=== PATIENT | male | born 1995 | race Caucasian/White ===

== ENCOUNTER 2019-11-07 07:29 | Outpatient (CLI) | payer BC ==
--- NOTE | 2019-11-07 08:02 | RAD ---
EXAM: XR Foot Lt 3 View STANDARD PROVIDED CLINICAL HISTORY: History of injury COMPARISON: 10/16/2019 FINDINGS: Ununited nondisplaced fracture involving the far lateral base of the fifth metatarsal. Alignment appe ars anatomic. Joint spaces appear preserved. No lytic or blastic bony lesions are seen. IMPRESSION: Nondisplaced ununited base of fifth metatarsal fracture.
== END 2019-11-07 07:30 | disposition home or self-care (01) ==
LOC: SCSRAD 07:29
PROVIDERS: ATTEND Family Medicine
DX: S92.355K Nondisplaced fracture of fifth metatarsal bone, left foot, subsequent encounter for fracture with nonunion (principal)
CPT/HCPCS: 36415; 80053; 80061; 80074; 80306; 81001; 85007; 85027; 86694; 86695; 86696; 86780; 87389; 87491; 87591

== ENCOUNTER 2020-01-30 10:22 | Outpatient (CLI) | payer OTHER ==
--- NOTE | 2020-01-30 10:51 | RAD ---
XR Hand Rt 3 View STANDARD History: Injury of right hand subsequent encounter Comparison: Radiograph 12/03/2019 Findings: Healing fracture of the fourth metacarpal fracture. Old third metacarpal fracture. 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 Impression: 1. Healing fourth metacarpal fracture with periosteal new bone formation along the fracture. 2. Old third metacarpal fracture. 3. Relatively high-grade negative ulnar variance with advanced for age distal radioulnar joint degene rative disease.
== END 2020-01-30 10:23 | disposition home or self-care (01) ==
LOC: SJX 10:22 → SCSRAD 10:23
PROVIDERS: ATTEND Family Medicine
DX: S69.91XD Unspecified injury of right wrist, hand and finger(s), subsequent encounter (principal); S62.304D Unspecified fracture of fourth metacarpal bone, right hand, subsequent encounter for fracture with routine healing

== ENCOUNTER 2022-05-19 11:48 | Outpatient (CLI) | payer BC | END 2022-05-19 11:49 | disposition home or self-care (01) | LOC: ULT 11:48 | PROVIDERS: ATTEND Nurse Anesthetist, Certified Registered | DX: R94.5 Abnormal results of liver function studies (principal); R16.0 Hepatomegaly, not elsewhere classified; K76.0 Fatty (change of) liver, not elsewhere classified | CPT/HCPCS: 76700 ==